=== PATIENT | male | born 1940 | race Caucasian/White ===

== ENCOUNTER 2019-01-10 19:29 | Inpatient (IN) | payer MEDICARE, OTHER ==
[2019-01-10] MEDS ORDERED: Sodium Chloride 0.9% 10 ML Syringe FLUSH PRN (19:38)
--- NOTE | 2019-01-10 20:16 | EDM.PDOC ---
ED HPI GENERAL MEDICAL PROBLEM - General Chief Complaint: Fever Stated Complaint: FEVER Time Seen by Provider: 01/10/19 20:15 Source of Information: Reports: Patient, Family History Limitations: Reports: No Limitations - History of Present Illness INITIAL COMMENTS - FREE TEXT/NARRATIVE: 78-year-old male from [facility] who presented because of weakness and fever. 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 - Related Data Allergies Allergy/AdvReac Type Severity Reaction Status Date / Time No Known Allergies Allergy Verified 01/10/19 20:00 Home Meds: Home Meds Aspirin [Halfprin] 81 mg PO DAILY 01/10/19 [History] Donepezil [Aricept] 10 mg PO DAILY 01/10/19 [History] Hydroxyurea 1,000 mg PO SUSA 01/10/19 [History] Hydroxyurea 500 mg PO MOTUWETHFR 01/10/19 [History] Lisinopril 10 mg PO DAILY 01/10/19 [History] Social & Family History - Tobacco Use Smoking Status *Q: Former Smoker Used Tobacco, but Quit: Yes Month/Year Tobacco Last Used: 35 years ago - Caffeine Use Caffeine Use: Reports: Coffee - Recreational Drug Use Recreational Drug Use: No ED ROS GENERAL - Review of Systems Review Of Systems: ROS reveals no pertinent complaints other than HPI. ED EXAM, SEPSIS - Physical Exam Exam: See Below Exam Limited By: No Limitations General Appearance: Alert, WD/WN, Lethargic Ears: Normal External Exam Nose: Normal Inspection Throat/Mouth: Normal Inspection Head: Atraumatic Neck: Normal Inspection Respiratory/Chest: No Respiratory Distress, Lungs Clear Cardiovascular: Normal Peripheral Pulses GI/Abdominal Exam: Normal Bowel Sounds Course - Vital Signs Last Recorded V/S: Last Vital Signs Temp 99.6 F 01/10/19 19:35 Pulse 80 01/10/19 19:35 Resp 20 01/10/19 19:35 BP 117/56 L 01/10/19 19:35 Pulse Ox 95 01/10/19 19:35 - Orders/Labs/Meds Orders: Active Orders 24 hr Category Date Time Status Chest 2V [CR] Stat Exams 01/10/19 19:38 Taken CULTURE BLOOD [BC] Urgent Lab 01/10/19 20:00 Received CULTURE BLOOD [BC] Urgent Lab 01/10/19 20:05 Received UA W/MICROSCOPIC [URIN] Stat Lab 01/10/19 19:38 Ordered Sodium Chloride 0.9% [Saline Flush] Med 01/10/19 19:38 Active 10 ml FLUSH ASDIRECTED PRN Blood Culture x2 Reflex Set [OM.PC] Urgent Oth 01/10/19 19:38 Ordered Peripheral IV Insertion Adult [OM.PC] Routine Oth 01/10/19 19:38 Ordered Medication Orders Sodium Chloride (Saline Flush) 10 ml FLUSH ASDIRECTED PRN PRN Reason: Keep Vein Open Last Admin: 01/10/19 19:40 Dose: 10 ml Labs: Laboratory Tests 01/10/19 01/10/19 01/10/19 Range/Units 20:00 20:00 20:00 WBC 9.7 (4.5-12.0) X10-3/uL RBC 5.24 (4.30-5.75) x10(6)uL Hgb 13.8 (13.5-17.8) g/dL Hct 42.8 (30.0-51.3) % MCV 81.6 (80-96) fL MCH 26.3 L (27.7-33.6) pg MCHC 32.2 (32.2-35.4) g/dL RDW 15.6 H (11.5-15.5) % Plt Count 270 (125-369) X10(3)uL MPV 8.2 (7.4-10.4) fL Neut % (Auto) 85.6 H (46-82) % Lymph % (Auto) 5.0 L (13-37) % [place] % (Auto) 5.3 (4-12) % Eos % (Auto) 1 (1.0-5.0) % Baso % (Auto) 4 H (0-2) % Neut # (Auto) 8.4 H (1.6-8.3) # Lymph # (Auto) 0.5 L (0.6-5.0) # [place] # (Auto) 0.5 (0.0-1.3) # Eos # (Auto) 0.0 (0.0-0.8) # Baso # (Auto) 0.3 H (0.0-0.2) # Sodium 131 L (135-145) mmol/L Potassium 3.6 (3.5-5.3) mmol/L Chloride 98 L (100-110) mmol/L Carbon Dioxide 24 (21-32) mmol/L BUN 17 (7-18) mg/dL Creatinine 0.6 L (0.70-1.30) mg/dL Est Cr Clr Drug Dosing 95.04 mL/min Estimated GFR (MDRD) > 60 (>60) BUN/Creatinine Ratio 28.3 H (9-20) Glucose 110 (80-116) mg/dL Calcium 8.4 L (8.6-10.2) mg/dL Total Bilirubin 1.4 H (0.1-1.3) mg/dL AST 13 (5-25) IU/L ALT 11 L (12-36) U/L Alkaline Phosphatase 70 (56-112) IU/L Troponin I 0.019 (<0.017-0.056) ng/mL Total Protein 5.9 L (6.0-8.0) g/dL Albumin 3.6 (3.2-4.6) g/dL Globulin 2.3 g/dL Albumin/Globulin Ratio 1.6 Meds: Medications Generic Name Dose Route Start Last Admin Trade Name Freq PRN Reason Stop Dose Admin Sodium Chloride 10 ml 01/10/19 19:38 01/10/19 19:40 Saline Flush FLUSH 10 ml ASDIRECTED PRN Administration Keep Vein Open Departure - Departure Time of Disposition: 20:47 Disposition: Refer to Observation Clinical Impression: Fever, Weakness - Discharge Information Referrals: PCP,None [Primary Care Provider] - Forms: ED Department Discharge - Problem List & Annotations (1) Fever SNOMED Code(s): 580962854 Code(s): R50.9 - FEVER, UNSPECIFIED Status: Acute Current Visit: Yes Qualifiers: Fever type: unspecified Qualified Code(s): R50.9 - Fever, unspecified (2) Weakness SNOMED Code(s): 31995885 Code(s): R53.1 - WEAKNESS Status: Acute Current Visit: Yes (3) Dementia SNOMED Code(s): 90464983 Code(s): F03.90 - UNSPECIFIED DEMENTIA WITHOUT BEHAVIORAL DISTURBANCE Status: Chronic Current Visit: Yes Qualifiers: Dementia type: Alzheimer's disease (4) Polycythemia SNOMED Code(s): 371405498 Code(s): D75.1 - SECONDARY POLYCYTHEMIA Status: Chronic Current Visit: Yes - Problem List Review Problem List Initiated/Reviewed/Updated: Yes - My Orders Last 24 Hours: My Active Orders 01/10/19 19:38 Chest 2V [CR] Stat UA W/MICROSCOPIC [URIN] Stat Sodium Chloride 0.9% [Saline Flush] 10 ml FLUSH ASDIRECTED PRN Blood Culture x2 Reflex Set [OM.PC] Urgent Peripheral IV Insertion Adult [OM.PC] Routine 01/10/19 20:00 CULTURE BLOOD [BC] Urgent 01/10/19 20:05 CULTURE BLOOD [BC] Urgent - Assessment/Plan Last 24 Hours: My Active Orders 01/10/19 19:38 Chest 2V [CR] Stat UA W/MICROSCOPIC [URIN] Stat Sodium Chloride 0.9% [Saline Flush] 10 ml FLUSH ASDIRECTED PRN Blood Culture x2 Reflex Set [OM.PC] Urgent Peripheral IV Insertion Adult [OM.PC] Routine 01/10/19 20:00 CULTURE BLOOD [BC] Urgent 01/10/19 20:05 CULTURE BLOOD [BC] Urgent Plan: The source of his fever/symptoms is uncertain. I will admit him give him fluids, obtain a UA,Flu A and re-evaluate.
[2019-01-10] MEDS ORDERED: Acetaminophen 325 MG Tab PO PRN (20:55)
[2019-01-10] MEDS: Sodium Chloride 0.9% 1,000 ML IV SCH (21:19)
[2019-01-11] MEDS: Sodium Chloride 0.9% 1,000 ML IV SCH ×2 (05:12→14:47)
--- NOTE | 2019-01-11 08:16 | PCM.PN ---
Addendum entered and electronically signed by Bina Seo MD 01/11/19 09:49: Palliative care status Original Note: <Bina Seo - Last Filed: 01/11/19 08:08> - General Info Date of Service: 01/11/19 Subjective Update: Ham Brown is a 78 years old male who admitted to the hospital due to fever , cough, weakness. Patient reports not feeling well for the last few days. He live in [facility] assisted living. Patient reports yesterday he had a temp of 102, chills, cough, loss of appetite, runny nose and congestion. He use FWW at home, he was too weak to walk yesterday. Patient quite smoking 20 years ago. PMHx of HTN on lisinopril, Dementia on Aricept, Hx of Polycythemia on Hydrea and Aspirin. Hx of prostate cancer s/p proctectomy in 2002. Patient reports today he is still feeling weak. He had low grade temp yesterday. Last BM was 2 days ago. Chest pain only when he cough. no prior history of heart disease. No new urinary symptoms, he dose have difficulty urination since his prostatectomy Patient denies headache. - Review of Systems General: Reports: Fever, Weakness, Fatigue, Chills, Appetite HEENT: Reports: Sinus Congestion Pulmonary: Reports: Pleuritic Chest Pain, Cough, Sputum Cardiovascular: Reports: No Symptoms Gastrointestinal: Reports: Constipation, Decreased Appetite Genitourinary: Reports: Other (Urinary: problems with starting and stopping urination.) Musculoskeletal: Reports: Back Pain Skin: Reports: No Symptoms Neurological: Reports: Weakness, Gait Disturbance Psychiatric: Reports: Other (Hx of Demntia ) - Patient Data Vitals - Most Recent: Last Vital Signs Temp 37.3 C 01/11/19 04:00 Pulse 64 01/11/19 04:00 Resp 18 01/11/19 04:00 BP 137/74 01/11/19 04:00 Pulse Ox 93 L 01/11/19 04:00 Weight - Most Recent: 146 lb I&O - Last 24 Hours: Intake & Output 01/10/19 01/11/19 01/11/19 22:59 06:59 14:59 Intake Total 1139 Output Total 400 Balance 739 Lab Results Last 24 Hours: Laboratory Results - last 24 hr 01/10/19 01/10/19 01/10/19 Range/Units 20:00 20:00 20:00 WBC 9.7 (4.5-12.0) X10-3/uL RBC 5.24 (4.30-5.75) x10(6)uL Hgb 13.8 (13.5-17.8) g/dL Hct 42.8 (30.0-51.3) % MCV 81.6 (80-96) fL MCH 26.3 L (27.7-33.6) pg MCHC 32.2 (32.2-35.4) g/dL RDW 15.6 H (11.5-15.5) % Plt Count 270 (125-369) X10(3)uL MPV 8.2 (7.4-10.4) fL Neut % (Auto) 85.6 H (46-82) % Lymph % (Auto) 5.0 L (13-37) % [place] % (Auto) 5.3 (4-12) % Eos % (Auto) 1 (1.0-5.0) % Baso % (Auto) 4 H (0-2) % Neut # (Auto) 8.4 H (1.6-8.3) # Lymph # (Auto) 0.5 L (0.6-5.0) # [place] # (Auto) 0.5 (0.0-1.3) # Eos # (Auto) 0.0 (0.0-0.8) # Baso # (Auto) 0.3 H (0.0-0.2) # Sodium 131 L (135-145) mmol/L Potassium 3.6 (3.5-5.3) mmol/L Chloride 98 L (100-110) mmol/L Carbon Dioxide 24 (21-32) mmol/L BUN 17 (7-18) mg/dL Creatinine 0.6 L (0.70-1.30) mg/dL Est Cr Clr Drug Dosing 95.04 mL/min Estimated GFR (MDRD) > 60 (>60) BUN/Creatinine Ratio 28.3 H (9-20) Glucose 110 (80-116) mg/dL Calcium 8.4 L (8.6-10.2) mg/dL Total Bilirubin 1.4 H (0.1-1.3) mg/dL AST 13 (5-25) IU/L ALT 11 L (12-36) U/L Alkaline Phosphatase 70 (56-112) IU/L Troponin I 0.019 (<0.017-0.056) ng/mL Total Protein 5.9 L (6.0-8.0) g/dL Albumin 3.6 (3.2-4.6) g/dL Globulin 2.3 g/dL Albumin/Globulin Ratio 1.6 Urine Color (YELLOW) Urine Appearance (CLEAR) Urine pH (5.0-6.5) Ur Specific [place] (1.010-1.025) Urine Protein (NEGATIVE) mg/dL Urine Glucose (UA) (NORMAL) mg/dL Urine Ketones (NEGATIVE) mg/dL Urine Occult Blood (NEGATIVE) Urine Nitrite (NEGATIVE) Urine Bilirubin (NEGATIVE) Urine Urobilinogen (NEGATIVE) mg/dL Ur Leukocyte Esterase (NEGATIVE) Urine RBC (0-5) Urine WBC (0-5) Ur Squamous Epith Cells (NS,R,O) Urine Bacteria (NS) 01/11/19 01/11/19 Range/Units 02:05 06:01 WBC (4.5-12.0) X10-3/uL RBC (4.30-5.75) x10(6)uL Hgb (13.5-17.8) g/dL Hct (30.0-51.3) % MCV (80-96) fL MCH (27.7-33.6) pg MCHC (32.2-35.4) g/dL RDW (11.5-15.5) % Plt Count (125-369) X10(3)uL MPV (7.4-10.4) fL Neut % (Auto) (46-82) % Lymph % (Auto) (13-37) % [place] % (Auto) (4-12) % Eos % (Auto) (1.0-5.0) % Baso % (Auto) (0-2) % Neut # (Auto) (1.6-8.3) # Lymph # (Auto) (0.6-5.0) # [place] # (Auto) (0.0-1.3) # Eos # (Auto) (0.0-0.8) # Baso # (Auto) (0.0-0.2) # Sodium 134 L (135-145) mmol/L Potassium 3.8 (3.5-5.3) mmol/L Chloride 101 (100-110) mmol/L Carbon Dioxide 28 (21-32) mmol/L BUN 13 (7-18) mg/dL Creatinine 0.6 L (0.70-1.30) mg/dL Est Cr Clr Drug Dosing 95.04 mL/min Estimated GFR (MDRD) > 60 (>60) BUN/Creatinine Ratio 21.7 H (9-20) Glucose 95 (80-116) mg/dL Calcium 8.1 L (8.6-10.2) mg/dL Total Bilirubin (0.1-1.3) mg/dL AST (5-25) IU/L ALT (12-36) U/L Alkaline Phosphatase (56-112) IU/L Troponin I (<0.017-0.056) ng/mL Total Protein (6.0-8.0) g/dL Albumin (3.2-4.6) g/dL Globulin g/dL Albumin/Globulin Ratio Urine Color Yellow (YELLOW) Urine Appearance Slightly cloudy (CLEAR) Urine pH 6.5 (5.0-6.5) Ur Specific [place] 1.015 (1.010-1.025) Urine Protein Negative (NEGATIVE) mg/dL Urine Glucose (UA) Normal (NORMAL) mg/dL Urine Ketones Negative (NEGATIVE) mg/dL Urine Occult Blood Negative (NEGATIVE) Urine Nitrite Negative (NEGATIVE) Urine Bilirubin Negative (NEGATIVE) Urine Urobilinogen 1 H (NEGATIVE) mg/dL Ur Leukocyte Esterase Negative (NEGATIVE) Urine RBC 0-5 (0-5) Urine WBC 0-5 (0-5) Ur Squamous Epith Cells Occasional (NS,R,O) Urine Bacteria Few H (NS) Ty Results Last 24 Hours: Microbiology 01/10/19 21:10 Influenza Type A Antigen Screen - Final Nasal, Unspecified NEGATIVE INFLUENZA A VIRUS AG Influenza Type B Antigen Screen - Final NEGATIVE INFLUENZA B VIRUS AG Med Orders - Current: Current Medications Acetaminophen (Tylenol) 650 mg PO Q4H PRN PRN Reason: Pain (Mild 1-3)/fever Sodium Chloride (Normal Saline) 1,000 mls @ 125 mls/hr IV ASDIRECTED [facility] Last Admin: 01/11/19 05:12 Dose: 125 mls/hr Levofloxacin/Dextrose (Levaquin In D5w 750 Mg/150 Ml) 150 mls @ 100 mls/hr IV Q24H FAIZAN Sodium Chloride (Saline Flush) 10 ml FLUSH ASDIRECTED PRN PRN Reason: Keep Vein Open Last Admin: 01/10/19 19:40 Dose: 10 ml - Exam General: Alert, Oriented HEENT: Pupils Equal Neck: Supple Lungs: Decreased Breath Sounds Cardiovascular: Regular Rate, Regular Rhythm GI/Abdominal Exam: Normal Bowel Sounds, Soft (Male) Exam: Deferred Back Exam: Normal Inspection Extremities: Pedal Edema Peripheral Pulses: 2+: Dorsalis Pedis (L), Dorsalis Pedis (R) Skin: Warm Psy/Mental Status: Alert, Normal Affect - Problem List & Annotations (1) Hypertension SNOMED Code(s): 06549828 Code(s): I10 - ESSENTIAL (PRIMARY) HYPERTENSION Status: Acute Current Visit: Yes (2) Community acquired pneumonia SNOMED Code(s): 391939285 Code(s): J18.9 - PNEUMONIA, UNSPECIFIED ORGANISM Status: Acute Current Visit: Yes (3) Fever SNOMED Code(s): 783748736 Code(s): R50.9 - FEVER, UNSPECIFIED Status: Acute Current Visit: Yes Qualifiers: Fever type: unspecified Qualified Code(s): R50.9 - Fever, unspecified (4) Weakness SNOMED Code(s): 71424269 Code(s): R53.1 - WEAKNESS Status: Acute Current Visit: Yes (5) Dementia SNOMED Code(s): 25248135 Code(s): F03.90 - UNSPECIFIED DEMENTIA WITHOUT BEHAVIORAL DISTURBANCE Status: Chronic Current Visit: Yes Qualifiers: Dementia type: Alzheimer's disease (6) Polycythemia SNOMED Code(s): 777587507 Code(s): D75.1 - SECONDARY POLYCYTHEMIA Status: Chronic Current Visit: Yes - Problem List Review Problem List Initiated/Reviewed/Updated: Yes - My Orders Last 24 Hours: My Active Orders 01/11/19 08:15 Levofloxacin/Dextrose 5%-Water [Levaquin in D5W 750 MG/150 ML] 150 ml IV Q24H - Plan Plan:: - Will start patient on Levaquin - Continue IV fluid - Restart home medication Lisinopril, Aricept, Aspirin, and Hydrea - PT/ OT - Pending blood culture - Repeat labs tomorrow <Boo Hummel - Last Filed: 01/11/19 15:19> - Patient Data Vitals - Most Recent: Last Vital Signs Temp 98.9 F 01/11/19 12:00 Pulse 67 01/11/19 12:00 Resp 18 01/11/19 12:00 BP 143/76 H 01/11/19 12:00 Pulse Ox 96 01/11/19 12:00 I&O - Last 24 Hours: Intake & Output 01/11/19 01/11/19 01/11/19 06:59 14:59 22:59 Intake Total 1139 900 Output Total 400 800 Balance 739 100 Lab Results Last 24 Hours: Laboratory Results - last 24 hr 01/10/19 01/10/19 01/10/19 Range/Units 20:00 20:00 20:00 WBC 9.7 (4.5-12.0) X10-3/uL RBC 5.24 (4.30-5.75) x10(6)uL Hgb 13.8 (13.5-17.8) g/dL Hct 42.8 (30.0-51.3) % MCV 81.6 (80-96) fL MCH 26.3 L (27.7-33.6) pg MCHC 32.2 (32.2-35.4) g/dL RDW 15.6 H (11.5-15.5) % Plt Count 270 (125-369) X10(3)uL MPV 8.2 (7.4-10.4) fL Neut % (Auto) 85.6 H (46-82) % Lymph % (Auto) 5.0 L (13-37) % [place] % (Auto) 5.3 (4-12) % Eos % (Auto) 1 (1.0-5.0) % Baso % (Auto) 4 H (0-2) % Neut # (Auto) 8.4 H (1.6-8.3) # Lymph # (Auto) 0.5 L (0.6-5.0) # [place] # (Auto) 0.5 (0.0-1.3) # Eos # (Auto) 0.0 (0.0-0.8) # Baso # (Auto) 0.3 H (0.0-0.2) # Sodium 131 L (135-145) mmol/L Potassium 3.6 (3.5-5.3) mmol/L Chloride 98 L (100-110) mmol/L Carbon Dioxide 24 (21-32) mmol/L BUN 17 (7-18) mg/dL Creatinine 0.6 L (0.70-1.30) mg/dL Est Cr Clr Drug Dosing 95.04 mL/min Estimated GFR (MDRD) > 60 (>60) BUN/Creatinine Ratio 28.3 H (9-20) Glucose 110 (80-116) mg/dL Calcium 8.4 L (8.6-10.2) mg/dL Total Bilirubin 1.4 H (0.1-1.3) mg/dL AST 13 (5-25) IU/L ALT 11 L (12-36) U/L Alkaline Phosphatase 70 (56-112) IU/L Troponin I 0.019 (<0.017-0.056) ng/mL Total Protein 5.9 L (6.0-8.0) g/dL Albumin 3.6 (3.2-4.6) g/dL Globulin 2.3 g/dL Albumin/Globulin Ratio 1.6 Urine Color (YELLOW) Urine Appearance (CLEAR) Urine pH (5.0-6.5) Ur Specific [place] (1.010-1.025) Urine Protein (NEGATIVE) mg/dL Urine Glucose (UA) (NORMAL) mg/dL Urine Ketones (NEGATIVE) mg/dL Urine Occult Blood (NEGATIVE) Urine Nitrite (NEGATIVE) Urine Bilirubin (NEGATIVE) Urine Urobilinogen (NEGATIVE) mg/dL Ur Leukocyte Esterase (NEGATIVE) Urine RBC (0-5) Urine WBC (0-5) Ur Squamous Epith Cells (NS,R,O) Urine Bacteria (NS) 01/11/19 01/11/19 Range/Units 02:05 06:01 WBC (4.5-12.0) X10-3/uL RBC (4.30-5.75) x10(6)uL Hgb (13.5-17.8) g/dL Hct (30.0-51.3) % MCV (80-96) fL MCH (27.7-33.6) pg MCHC (32.2-35.4) g/dL RDW (11.5-15.5) % Plt Count (125-369) X10(3)uL MPV (7.4-10.4) fL Neut % (Auto) (46-82) % Lymph % (Auto) (13-37) % [place] % (Auto) (4-12) % Eos % (Auto) (1.0-5.0) % Baso % (Auto) (0-2) % Neut # (Auto) (1.6-8.3) # Lymph # (Auto) (0.6-5.0) # [place] # (Auto) (0.0-1.3) # Eos # (Auto) (0.0-0.8) # Baso # (Auto) (0.0-0.2) # Sodium 134 L (135-145) mmol/L Potassium 3.8 (3.5-5.3) mmol/L Chloride 101 (100-110) mmol/L Carbon Dioxide 28 (21-32) mmol/L BUN 13 (7-18) mg/dL Creatinine 0.6 L (0.70-1.30) mg/dL Est Cr Clr Drug Dosing 95.04 mL/min Estimated GFR (MDRD) > 60 (>60) BUN/Creatinine Ratio 21.7 H (9-20) Glucose 95 (80-116) mg/dL Calcium 8.1 L (8.6-10.2) mg/dL Total Bilirubin (0.1-1.3) mg/dL AST (5-25) IU/L ALT (12-36) U/L Alkaline Phosphatase (56-112) IU/L Troponin I (<0.017-0.056) ng/mL Total Protein (6.0-8.0) g/dL Albumin (3.2-4.6) g/dL Globulin g/dL Albumin/Globulin Ratio Urine Color Yellow (YELLOW) Urine Appearance Slightly cloudy (CLEAR) Urine pH 6.5 (5.0-6.5) Ur Specific [place] 1.015 (1.010-1.025) Urine Protein Negative (NEGATIVE) mg/dL Urine Glucose (UA) Normal (NORMAL) mg/dL Urine Ketones Negative (NEGATIVE) mg/dL Urine Occult Blood Negative (NEGATIVE) Urine Nitrite Negative (NEGATIVE) Urine Bilirubin Negative (NEGATIVE) Urine Urobilinogen 1 H (NEGATIVE) mg/dL Ur Leukocyte Esterase Negative (NEGATIVE) Urine RBC 0-5 (0-5) Urine WBC 0-5 (0-5) Ur Squamous Epith Cells Occasional (NS,R,O) Urine Bacteria Few H (NS) Ty Results Last 24 Hours: Microbiology 01/10/19 21:10 Influenza Type A Antigen Screen - Final Nasal, Unspecified NEGATIVE INFLUENZA A VIRUS AG Influenza Type B Antigen Screen - Final NEGATIVE INFLUENZA B VIRUS AG Med Orders - Current: Current Medications Acetaminophen (Tylenol) 650 mg PO Q4H PRN PRN Reason: Pain (Mild 1-3)/fever Aspirin (Halfprin) 81 mg PO DAILY [facility] Last Admin: 01/11/19 09:52 Dose: 81 mg Donepezil HCl (Aricept) 10 mg PO DAILY [facility] Last Admin: 01/11/19 09:52 Dose: 10 mg Hydroxyurea (Hydrea) 500 mg PO MOTUWETHFR [facility] Last Admin: 01/11/19 09:51 Dose: 500 mg Hydroxyurea (Hydrea) 1,000 mg PO SuSa@0900 [facility] Sodium Chloride (Normal Saline) 1,000 mls @ 125 mls/hr IV ASDIRECTED [facility] Last Admin: 01/11/19 14:47 Dose: 125 mls/hr Levofloxacin/Dextrose (Levaquin In D5w 750 Mg/150 Ml) 150 mls @ 100 mls/hr IV Q24H [facility] Last Admin: 01/11/19 08:31 Dose: 100 mls/hr Lisinopril (Prinivil) 10 mg PO DAILY@1800 [facility] Sodium Chloride (Saline Flush) 10 ml FLUSH ASDIRECTED PRN PRN Reason: Keep Vein Open Last Admin: 01/10/19 19:40 Dose: 10 ml - My Orders Last 24 Hours: My Active Orders 01/11/19 09:47 Patient Status [ADT] Routine - Plan Plan:: I attest that seeing this patient examined this patient.
[2019-01-11] MEDS: Levofloxacin/Dextrose 5%-Water 150 ML IV SCH (08:31)
[2019-01-11] MEDS: Hydroxyurea 500 MG Cap PO SCH (09:51)
[2019-01-11] MEDS: Donepezil 10 MG Tab PO SCH (09:52)
[2019-01-11] MEDS: Aspirin 81 MG Tab.EC PO SCH (09:52)
--- NOTE | 2019-01-11 10:47 | CR ---
INDICATION: Cough. CHEST TWO VIEWS: AP and 2 lateral views of the chest were obtained 01/10/19-- no comparisons. The heart is enlarged with LVE. The aorta is tortuous with calcification minimally in the arch and descending portion. There appears to be infiltrate in the left lower lobe with suggestion of some minimal blunting of the posterior sulcus, findings being compatible with pneumonia and pleuritis--correlate clinically. A definite consolidating pneumonia was not identified in the right lung. However, posteriorly there appears to be a curvilinear density, which may represent a fibrotic strand or possibly subsegmental atelectatic change. Also noted is hyperaeration with slightly flattened diaphragm leafs and prominent AP diameter suggesting COPD. Bony structures appear to be fairly intact. No evidence of CHF is seen. IMPRESSION: 1. Probable left lower lobe pneumonia and pleuritis, mild patchy pneumonia suggested. 2. Probable COPD--correlate clinically. 3. ASHD with cardiomegaly. MTDD
[2019-01-11] MEDS: Lisinopril 10 MG Tab PO SCH (18:16)
[2019-01-12] MEDS: Sodium Chloride 0.9% 1,000 ML IV SCH (01:43)
[2019-01-12] MEDS: Donepezil 10 MG Tab PO SCH (08:38)
[2019-01-12] MEDS: Aspirin 81 MG Tab.EC PO SCH (08:39)
[2019-01-12] MEDS: Hydroxyurea 500 MG Cap PO SCH (08:39)
--- NOTE | 2019-01-12 09:25 | PCM.PN ---
<Bina Seo - Last Filed: 01/12/19 09:20> - General Info Date of Service: 01/12/19 Admission Dx/Problem (Free Text): Patient is doing well today. He is confused and disoriented, but he dose has baseline dementia. He denies chest pain. he has cough with sputum. vital sign stable. he is tolerating diet well. had BM yesterday. we lost his IV access this morning. - Review of Systems General: Reports: Fatigue HEENT: Reports: No Symptoms Pulmonary: Reports: Cough, Sputum Cardiovascular: Reports: No Symptoms Gastrointestinal: Reports: No Symptoms Genitourinary: Reports: Incontinence Musculoskeletal: Reports: No Symptoms Skin: Reports: No Symptoms Neurological: Reports: Confusion Psychiatric: Reports: Confusion - Patient Data Vitals - Most Recent: Last Vital Signs Temp 36.7 C 01/12/19 04:10 Pulse 70 01/12/19 04:10 Resp 18 01/12/19 04:10 BP 125/63 01/12/19 06:23 Pulse Ox 95 01/12/19 04:10 Weight - Most Recent: 146 lb I&O - Last 24 Hours: Intake & Output 01/11/19 01/12/19 01/12/19 22:59 06:59 14:59 Intake Total 1494 511 Output Total 550 2500 Balance 944 -1988 Ty Results Last 24 Hours: Microbiology 01/11/19 02:05 Urine Culture - Preliminary Urine, Clean Catch 01/10/19 20:05 Aerobic Blood Culture - Preliminary Blood - Venous NO GROWTH AFTER 1 DAY Anaerobic Blood Culture - Preliminary NO GROWTH AFTER 1 DAY 01/10/19 20:00 Aerobic Blood Culture - Preliminary Blood - Venous - Lab Draw NO GROWTH AFTER 1 DAY Anaerobic Blood Culture - Preliminary NO GROWTH AFTER 1 DAY Med Orders - Current: Current Medications Acetaminophen (Tylenol) 650 mg PO Q4H PRN PRN Reason: Pain (Mild 1-3)/fever Aspirin (Halfprin) 81 mg PO DAILY [facility] Last Admin: 01/12/19 08:39 Dose: 81 mg Donepezil HCl (Aricept) 10 mg PO DAILY [facility] Last Admin: 01/12/19 08:38 Dose: 10 mg Hydroxyurea (Hydrea) 500 mg PO MOTUWETHFR [facility] Last Admin: 01/12/19 08:39 Dose: 500 mg Hydroxyurea (Hydrea) 1,000 mg PO SuSa@0900 [facility] Levofloxacin (Levaquin) 750 mg PO Q24H [facility] Lisinopril (Prinivil) 10 mg PO DAILY@1800 [facility] Last Admin: 01/11/19 18:16 Dose: 10 mg Discontinued Medications Sodium Chloride (Normal Saline) 1,000 mls @ 70 mls/hr IV ASDIRECTED [facility] Last Admin: 01/12/19 01:43 Dose: 125 mls/hr Levofloxacin/Dextrose (Levaquin In D5w 750 Mg/150 Ml) 150 mls @ 100 mls/hr IV Q24H [facility] Last Admin: 01/11/19 08:31 Dose: 100 mls/hr Sodium Chloride (Saline Flush) 10 ml FLUSH ASDIRECTED PRN PRN Reason: Keep Vein Open Last Admin: 01/10/19 19:40 Dose: 10 ml - Exam General: Alert, Cooperative HEENT: Pupils Equal Neck: Supple Lungs: Decreased Breath Sounds, Crackles Cardiovascular: Regular Rate, Regular Rhythm GI/Abdominal Exam: Normal Bowel Sounds, Soft, Non-Tender Extremities: Normal Inspection, Non-Tender, No Pedal Edema Skin: Warm (disoriented ) Psy/Mental Status: Alert, Normal Affect, Normal Mood - Problem List & Annotations (1) Hypertension SNOMED Code(s): 12729693 Code(s): I10 - ESSENTIAL (PRIMARY) HYPERTENSION Status: Acute Current Visit: Yes (2) Community acquired pneumonia SNOMED Code(s): 795977226 Code(s): J18.9 - PNEUMONIA, UNSPECIFIED ORGANISM Status: Acute Current Visit: Yes (3) Fever SNOMED Code(s): 742233258 Code(s): R50.9 - FEVER, UNSPECIFIED Status: Acute Current Visit: Yes Qualifiers: Fever type: unspecified Qualified Code(s): R50.9 - Fever, unspecified (4) Weakness SNOMED Code(s): 33434694 Code(s): R53.1 - WEAKNESS Status: Acute Current Visit: Yes (5) Dementia SNOMED Code(s): 40048938 Code(s): F03.90 - UNSPECIFIED DEMENTIA WITHOUT BEHAVIORAL DISTURBANCE Status: Chronic Current Visit: Yes Qualifiers: Dementia type: Alzheimer's disease (6) Polycythemia SNOMED Code(s): 810038919 Code(s): D75.1 - SECONDARY POLYCYTHEMIA Status: Chronic Current Visit: Yes - Problem List Review Problem List Initiated/Reviewed/Updated: Yes - My Orders Last 24 Hours: My Active Orders 01/11/19 08:30 Hydroxyurea [Hydrea] 500 mg PO MOTUWETHFR 01/11/19 09:00 Aspirin [Halfprin] 81 mg PO DAILY Donepezil [Aricept] 10 mg PO DAILY 01/11/19 18:00 Lisinopril [Prinivil] 10 mg PO DAILY@1800 01/14/19 09:00 Hydroxyurea [Hydrea] 1,000 mg PO SuSa@0900 - Plan Plan:: Ham Brown is a 78 year old male with Pneumonia. - Switch IV Levaquin to PO. - Continue PT/OT - Continue to monitor vital sign <Boo Hummel - Last Filed: 01/12/19 16:10> - Patient Data Vitals - Most Recent: Last Vital Signs Temp 98.3 F 01/12/19 08:00 Pulse 80 01/12/19 08:00 Resp 14 01/12/19 08:00 BP 119/60 01/12/19 08:00 Pulse Ox 96 01/12/19 08:00 I&O - Last 24 Hours: Intake & Output 01/12/19 01/12/19 01/12/19 06:59 14:59 22:59 Intake Total 511 Output Total 2500 1250 Balance -1989 -1250 Ty Results Last 24 Hours: Microbiology 01/11/19 02:05 Urine Culture - Preliminary Urine, Clean Catch 01/10/19 20:05 Aerobic Blood Culture - Preliminary Blood - Venous NO GROWTH AFTER 1 DAY Anaerobic Blood Culture - Preliminary NO GROWTH AFTER 1 DAY 01/10/19 20:00 Aerobic Blood Culture - Preliminary Blood - Venous - Lab Draw NO GROWTH AFTER 1 DAY Anaerobic Blood Culture - Preliminary NO GROWTH AFTER 1 DAY Med Orders - Current: Current Medications Acetaminophen (Tylenol) 650 mg PO Q4H PRN PRN Reason: Pain (Mild 1-3)/fever Aspirin (Halfprin) 81 mg PO DAILY [facility] Last Admin: 01/12/19 08:39 Dose: 81 mg Donepezil HCl (Aricept) 10 mg PO DAILY [facility] Last Admin: 01/12/19 08:38 Dose: 10 mg Hydroxyurea (Hydrea) 500 mg PO MOTUWETHFR [facility] Last Admin: 01/12/19 08:39 Dose: 500 mg Hydroxyurea (Hydrea) 1,000 mg PO SuSa@0900 [facility] Levofloxacin (Levaquin) 750 mg PO Q24H [facility] Last Admin: 01/12/19 09:40 Dose: 750 mg Lisinopril (Prinivil) 10 mg PO DAILY@1800 [facility] Last Admin: 01/11/19 18:16 Dose: 10 mg Discontinued Medications Sodium Chloride (Normal Saline) 1,000 mls @ 70 mls/hr IV ASDIRECTED [facility] Last Admin: 01/12/19 01:43 Dose: 125 mls/hr Levofloxacin/Dextrose (Levaquin In D5w 750 Mg/150 Ml) 150 mls @ 100 mls/hr IV Q24H [facility] Last Admin: 01/12/19 10:22 Dose: Not Given Sodium Chloride (Saline Flush) 10 ml FLUSH ASDIRECTED PRN PRN Reason: Keep Vein Open Last Admin: 01/10/19 19:40 Dose: 10 ml - My Orders Last 24 Hours: My Active Orders 01/12/19 08:36 Peripheral IV Discontinue [OM.PC] Routine 01/12/19 09:00 levoFLOXacin [Levaquin] 750 mg PO Q24H - Plan Plan:: I attest that I have seen and examined this patient with the resident today.
[2019-01-12] MEDS: Levofloxacin 750 MG Tab PO SCH (09:40)
[2019-01-12] MEDS: Levofloxacin/Dextrose 5%-Water 150 ML IV SCH (10:22)
--- NOTE | 2019-01-12 17:23 | PCM.HP ---
<Bina Seo - Last Filed: 01/12/19 17:17> H&P History of Present Illness - General Date of Service: 01/11/19 Admit Problem/Dx: Ham Brown is a 78 years old male who admitted to the hospital due to fever , cough, weakness. Patient reports not feeling well for the last few days. He live in [place] assisted living. Patient reports yesterday he had a temp of 102, chills, cough, loss of appetite, runny nose and congestion. He use FWW at home, he was too weak to walk yesterday. Patient quite smoking 20 years ago. PMHx of HTN on lisinopril, Dementia on Aricept, Hx of Polycythemia on Hydrea and Aspirin. Hx of prostate cancer s/p proctectomy in 2002. Patient reports today he is still feeling weak. He had low grade temp yesterday. Last BM was 2 days ago. Chest pain only when he cough. no prior history of heart disease. No new urinary symptoms, he dose have difficulty urination since his prostatectomy Patient denies headache. - Related Data Allergies/Adverse Reactions: Allergies Allergy/AdvReac Type Severity Reaction Status Date / Time No Known Allergies Allergy Verified 01/10/19 20:00 Home Medications: Home Meds Aspirin [Halfprin] 81 mg PO DAILY 01/10/19 [History] Donepezil [Aricept] 10 mg PO DAILY 01/10/19 [History] Hydroxyurea 1,000 mg PO SUSA 01/10/19 [History] Hydroxyurea 500 mg PO MOTUWETHFR 01/10/19 [History] Lisinopril 10 mg PO DAILY@1800 01/10/19 [History] Past Medical History Cardiovascular History: Reports: Hypertension Musculoskeletal History: Reports: Back Pain, Chronic Neurological History: Reports: Parkinson's, Other (See Below) Other Neuro History: lewey body dementia Psychiatric History: Reports: None Other Psychiatric History: Lewey body dementia Hematologic History: Reports: Polycythemia Oncologic (Cancer) History: Reports: Prostate Other Oncologic History: polycthemia - Infectious Disease History Infectious Disease History: Reports: Chicken Pox - Past Surgical History Neurological Surgical History: Reports: None Social & Family History - Family History Family Medical History: Unobtainable - Tobacco Use Smoking Status *Q: Former Smoker Years of Tobacco use: 10 Packs/Tins Daily: 1 Used Tobacco, but Quit: Yes Month/Year Tobacco Last Used: unknown Second Hand Smoke Exposure: No - Caffeine Use Caffeine Use: Reports: Coffee Other Caffeine Use: 3-4 a day - Recreational Drug Use Recreational Drug Use: No H&P Review of Systems - Review of Systems: Review Of Systems: See Below General: Reports: Fever, Weakness, Fatigue, Decreased Appetite HEENT: Reports: No Symptoms Pulmonary: Reports: Shortness of Breath, Cough, Sputum Cardiovascular: Reports: No Symptoms Gastrointestinal: Reports: Decreased Appetite Genitourinary: Reports: Incontinence Musculoskeletal: Reports: No Symptoms Skin: Reports: No Symptoms Psychiatric: Reports: Confusion Neurological: Reports: Confusion, Difficulty Walking Exam - Exam Exam: See Below - Vital Signs Vital Signs: Last Vital Signs Temp 37.1 C 01/12/19 16:00 Pulse 67 01/12/19 16:00 Resp 14 01/12/19 16:00 BP 149/77 H 01/12/19 16:00 Pulse Ox 96 01/12/19 16:00 Weight: 146 lb - Exam General: Alert, Cooperative HEENT: PERRLA Neck: Supple Lungs: Decreased Breath Sounds Cardiovascular: Regular Rate, Regular Rhythm GI/Abdominal Exam: Normal Bowel Sounds, Soft, Non-Tender, No Organomegaly, No Distention, No Abnormal Bruit, No Mass, Pelvis Stable (Male) Exam: Deferred Rectal (Males) Exam: Deferred Back Exam: Decreased Range of Motion Extremities: Normal Inspection Skin: Warm Neurological: Abnormal Gait Neuro Extensive - Mental Status: Alert, Disorientation to Person, Disorientation to Place, Disorientation to Time Neuro Extensive - Motor, Sensory, Reflexes: Abnormal Motor Psychiatric: Alert - Patient Data Result Diagrams: 01/10/19 20:00 01/11/19 06:01 Ty Results Last 24 hrs: Microbiology 01/11/19 02:05 Urine Culture - Preliminary Urine, Clean Catch 01/10/19 20:05 Aerobic Blood Culture - Preliminary Blood - Venous NO GROWTH AFTER 1 DAY Anaerobic Blood Culture - Preliminary NO GROWTH AFTER 1 DAY 01/10/19 20:00 Aerobic Blood Culture - Preliminary Blood - Venous - Lab Draw NO GROWTH AFTER 1 DAY Anaerobic Blood Culture - Preliminary NO GROWTH AFTER 1 DAY - Problem List (1) Hypertension SNOMED Code(s): 70791679 ICD Code: I10 - ESSENTIAL (PRIMARY) HYPERTENSION Status: Acute Current Visit: Yes (2) Community acquired pneumonia SNOMED Code(s): 620213140 ICD Code: J18.9 - PNEUMONIA, UNSPECIFIED ORGANISM Status: Acute Current Visit: Yes (3) Fever SNOMED Code(s): 599696407 ICD Code: R50.9 - FEVER, UNSPECIFIED Status: Acute Current Visit: Yes Qualifiers: Fever type: unspecified Qualified Code(s): R50.9 - Fever, unspecified (4) Weakness SNOMED Code(s): 13288288 ICD Code: R53.1 - WEAKNESS Status: Acute Current Visit: Yes (5) Dementia SNOMED Code(s): 00180603 ICD Code: F03.90 - UNSPECIFIED DEMENTIA WITHOUT BEHAVIORAL DISTURBANCE Status: Chronic Current Visit: Yes Qualifiers: Dementia type: Alzheimer's disease (6) Polycythemia SNOMED Code(s): 820288600 ICD Code: D75.1 - SECONDARY POLYCYTHEMIA Status: Chronic Current Visit: Yes (7) Palliative care status SNOMED Code(s): 540633373 ICD Code: Z51.5 - ENCOUNTER FOR PALLIATIVE CARE Status: Acute Current Visit: Yes Problem List Initiated/Reviewed/Updated: Yes Orders Last 24hrs: Active Orders 24 hr Category Date Time Status Hydroxyurea [Hydrea] Med 01/14/19 09:00 Active 1,000 mg PO SuSa@0900 Lisinopril [Prinivil] Med 01/11/19 18:00 Active 10 mg PO DAILY@1800 levoFLOXacin [Levaquin] Med 01/12/19 09:00 Active 750 mg PO Q24H Peripheral IV Discontinue [OM.PC] Routine Oth 01/12/19 08:36 Ordered Medication Orders Acetaminophen (Tylenol) 650 mg PO Q4H PRN PRN Reason: Pain (Mild 1-3)/fever Aspirin (Halfprin) 81 mg PO DAILY [facility] Last Admin: 01/12/19 08:39 Dose: 81 mg Admin: 01/11/19 09:52 Dose: 81 mg Donepezil HCl (Aricept) 10 mg PO DAILY [facility] Last Admin: 01/12/19 08:38 Dose: 10 mg Admin: 01/11/19 09:52 Dose: 10 mg Hydroxyurea (Hydrea) 500 mg PO MOTUWETHFR [facility] Last Admin: 01/12/19 08:39 Dose: 500 mg Admin: 01/11/19 09:51 Dose: 500 mg Hydroxyurea (Hydrea) 1,000 mg PO SuSa@0900 [facility] Levofloxacin (Levaquin) 750 mg PO Q24H [facility] Last Admin: 01/12/19 09:40 Dose: 750 mg Lisinopril (Prinivil) 10 mg PO DAILY@1800 [facility] Last Admin: 01/11/19 18:16 Dose: 10 mg Assessment/Plan Comment:: 78 years old male admitted for pneumonia and weakness. Reviewed labs and images - start Levaquin IV - Monitor vital sign - Pending blood culture - PT/OT - IV fluid <Boo Hummel - Last Filed: 01/12/19 17:25> H&P History of Present Illness - General Admit Problem/Dx: Admission Diagnosis/Problem Admission Diagnosis/Problem Pneumonia Exam - Vital Signs Vital Signs: Last Vital Signs Temp 98.7 F 01/12/19 16:00 Pulse 67 01/12/19 16:00 Resp 14 01/12/19 16:00 BP 149/77 H 01/12/19 16:00 Pulse Ox 96 01/12/19 16:00 - Patient Data Result Diagrams: 01/10/19 20:00 01/11/19 06:01 Ty Results Last 24 hrs: Microbiology 01/11/19 02:05 Urine Culture - Preliminary Urine, Clean Catch 01/10/19 20:05 Aerobic Blood Culture - Preliminary Blood - Venous NO GROWTH AFTER 1 DAY Anaerobic Blood Culture - Preliminary NO GROWTH AFTER 1 DAY 01/10/19 20:00 Aerobic Blood Culture - Preliminary Blood - Venous - Lab Draw NO GROWTH AFTER 1 DAY Anaerobic Blood Culture - Preliminary NO GROWTH AFTER 1 DAY Orders Last 24hrs: Active Orders 24 hr Category Date Time Status Hydroxyurea [Hydrea] Med 01/14/19 09:00 Active 1,000 mg PO SuSa@0900 Lisinopril [Prinivil] Med 01/11/19 18:00 Active 10 mg PO DAILY@1800 levoFLOXacin [Levaquin] Med 01/12/19 09:00 Active 750 mg PO Q24H Peripheral IV Discontinue [OM.PC] Routine Oth 01/12/19 08:36 Ordered Medication Orders Acetaminophen (Tylenol) 650 mg PO Q4H PRN PRN Reason: Pain (Mild 1-3)/fever Aspirin (Halfprin) 81 mg PO DAILY [facility] Last Admin: 01/12/19 08:39 Dose: 81 mg Admin: 01/11/19 09:52 Dose: 81 mg Donepezil HCl (Aricept) 10 mg PO DAILY [facility] Last Admin: 01/12/19 08:38 Dose: 10 mg Admin: 01/11/19 09:52 Dose: 10 mg Hydroxyurea (Hydrea) 500 mg PO MOTUWETHFR [facility] Last Admin: 01/12/19 08:39 Dose: 500 mg Admin: 01/11/19 09:51 Dose: 500 mg Hydroxyurea (Hydrea) 1,000 mg PO SuSa@0900 [facility] Levofloxacin (Levaquin) 750 mg PO Q24H [facility] Last Admin: 01/12/19 09:40 Dose: 750 mg Lisinopril (Prinivil) 10 mg PO DAILY@1800 [facility] Last Admin: 01/11/19 18:16 Dose: 10 mg Assessment/Plan Comment:: I attest that I have seen and examined this patient with the Resident.
[2019-01-12] MEDS: Lisinopril 10 MG Tab PO SCH (18:52)
[2019-01-13] MEDS: Donepezil 10 MG Tab PO SCH (09:29)
[2019-01-13] MEDS: Hydroxyurea 500 MG Cap PO SCH (09:29)
[2019-01-13] MEDS: Levofloxacin 750 MG Tab PO SCH (09:29)
[2019-01-13] MEDS: Aspirin 81 MG Tab.EC PO SCH (09:29)
--- NOTE | 2019-01-14 04:31 | DISCH ---
DISCHARGE DATE: 01/13/2019 PRIMARY FINAL DIAGNOSIS: Left lower lobe pneumonia. OTHER DIAGNOSES: 1. Chronic dementia. 2. Chronic essential hypertension. 3. Polycythemia. OPERATIONS: None. COMPLICATIONS: None. SUMMARY: Ham is a 78-year-old man, who was admitted through the ER because of fever, weakness and a fall. The patient was found to have left lower lobe pneumonia. He was treated with IV and then switched to oral Levaquin. His fever rapidly defervesced. His strength improved and by 01/13/2019, he was up walking with good strength and balance. The patient is improved enough for discharge back to the [facility]. DISCHARGE MEDICATIONS: He was sent home on medications as follows: 1. Lisinopril 10 mg daily. 2. Levaquin 750 mg daily for four more days. 3. Hydrea 500 mg on Wednesday, Wednesday, Wednesday, , and Wednesday, and 1000 mg on Wednesday and Wednesday. 4. Aricept 10 mg daily. 5. Aspirin 81 mg daily. He will have home health assessment for any further need for treatment or therapies and is recommended to have a followup visit in 2 weeks as an outpatient. This patient will continue to receive palliative care measures for his underlying dementia and general infirmities of aging. /[id number] RAHEEM/LAY
[2019-01-14] MEDS ORDERED: Hydroxyurea 500 MG Cap PO SCH (09:00)
== END 2019-01-13 13:18 | disposition home health service (06) | DRG 195 ==
LOC: FB.ED 19:29 → FB.MS 21:05 → OBSVTOIN 01-11 09:47
PROVIDERS: ADMIT Family Medicine; ATTEND Family Medicine
DX: J18.9 Pneumonia, unspecified organism (principal); R50.9 Fever, unspecified; Z51.5 Encounter for palliative care; I10 Essential (primary) hypertension; D75.1 Secondary polycythemia; G31.83 Neurocognitive disorder with Lewy bodies; F02.80 Dementia in other diseases classified elsewhere, unspecified severity, without behavioral disturbance, psychotic disturbance, mood disturbance, and anxiety; Z87.891 Personal history of nicotine dependence; R53.1 Weakness; M54.9 Dorsalgia, unspecified; G89.29 Other chronic pain; Z85.46 Personal history of malignant neoplasm of prostate; Z90.79 Acquired absence of other genital organ(s); R39.198 Other difficulties with micturition; Z79.82 Long term (current) use of aspirin; W19.XXXA Unspecified fall, initial encounter; Y92.099 Unspecified place in other non-institutional residence as the place of occurrence of the external cause
CPT/HCPCS: 36415 ×2; 71046; 80048; 80053; 81001; 84484; 85025; 87040 ×2; 87086; 87804 ×2; 96361 ×2; 96365; 99285; G0378 ×2; J1956; J7030 ×2; 96360; 97110-GP; 97116-GP; 97161-GP; 97165-GO; 97530-GO; 99284; A9270-GY

== ENCOUNTER 2019-04-07 05:41 | Emergency (ER) | payer MEDICARE, OTHER ==
--- NOTE | 2019-04-07 06:34 | EDM.PDOC ---
<Juan Jose Antonio M - Last Filed: 04/07/19 06:50> ED HPI GENERAL MEDICAL PROBLEM - General Chief Complaint: Lower Extremity Injury/Pain Stated Complaint: FALL Time Seen by Provider: 04/07/19 06:32 Source of Information: Reports: [facility] Records History Limitations: Reports: Altered Mental Status - History of Present Illness INITIAL COMMENTS - FREE TEXT/NARRATIVE: Hma fell at the assisted living this morning.Unwitnessed. Found on the floor.Pain to the right hip area,inner thigh.Denies Headache. No LOC reported. Has dementia. His PMH includes Parkinsonism,Polycythemia Vera and HTN - Related Data Allergies Allergy/AdvReac Type Severity Reaction Status Date / Time leuprolide [From Lupron] Allergy Cannot Verified 04/07/19 06:13 Remember Home Meds: Home Meds Acetaminophen [Tylenol] 650 mg PO Q4H PRN tablet 01/13/19 [Rx] Aspirin [Halfprin] 81 mg PO DAILY #100 tab.ec 01/13/19 [Rx] Hydroxyurea 1,000 mg PO SUSA #60 capsule 01/13/19 [Rx] Hydroxyurea 500 mg PO MOTUWETHFR #40 capsule 01/13/19 [Rx] Lisinopril 10 mg PO DAILY@1800 #30 tablet 01/13/19 [Rx] Past Medical History Cardiovascular History: Reports: Hypertension Musculoskeletal History: Reports: Back Pain, Chronic Neurological History: Reports: Parkinson's, Other (See Below) Other Neuro History: lewey body dementia Psychiatric History: Reports: None Other Psychiatric History: Lewey body dementia Hematologic History: Reports: Polycythemia Oncologic (Cancer) History: Reports: Prostate Other Oncologic History: polycthemia - Infectious Disease History Infectious Disease History: Reports: Chicken Pox - Past Surgical History Neurological Surgical History: Reports: None Social & Family History - Family History Family Medical History: Unobtainable - Tobacco Use Smoking Status *Q: Unknown Ever Smoked - Caffeine Use Caffeine Use: Reports: Coffee Other Caffeine Use: 3-4 a day - Recreational Drug Use Recreational Drug Use: No Review of Systems - Review of Systems Review Of Systems: ROS reveals no pertinent complaints other than HPI. ED EXAM, GENERAL - Physical Exam Exam: See Below Exam Limited By: Altered Mental Status General Appearance: Alert, WD/WN Head: Atraumatic, Normocephalic Neck: Normal Inspection Respiratory/Chest: No Respiratory Distress Extremities: Pedal Edema, Limited Range of Motion, Other (Tender right hip. ). No: Normal Range of Motion Psychiatric: Normal Affect, Normal Mood Skin Exam: Warm Course - Vital Signs Last Recorded V/S: Last Vital Signs Temp 36.6 C 04/07/19 05:45 Pulse 87 04/07/19 12:15 Resp 18 04/07/19 12:15 BP 187/85 H 04/07/19 12:15 Pulse Ox 95 04/07/19 12:15 - Orders/Labs/Meds Orders: Active Orders 24 hr Category Date Time Status URINALYSIS W/MICROSCOPIC [UA W/MICROSCOPIC] [URIN] Stat Lab 04/07/19 12:30 Ordered Sodium Chloride 0.9% [Normal Saline] 1,000 ml Med 04/07/19 08:30 Active IV ASDIRECTED Sodium Chloride 0.9% [Saline Flush] Med 04/07/19 07:35 Active 10 ml FLUSH ASDIRECTED PRN fentaNYL [Sublimaze] Med 04/07/19 08:16 Active 10 mcg IVPUSH Q30M PRN EKG 12 Lead [EK] Stat Ther 04/07/19 06:44 Ordered Medication Orders Fentanyl (Sublimaze) 10 mcg IVPUSH Q30M PRN PRN Reason: Pain Last Admin: 04/07/19 09:20 Dose: 10 mcg Admin: 04/07/19 08:49 Dose: 10 mcg Sodium Chloride (Normal Saline) 1,000 mls @ 150 mls/hr IV ASDIRECTED FAIZAN Last Admin: 04/07/19 08:46 Dose: 150 mls/hr Sodium Chloride (Saline Flush) 10 ml FLUSH ASDIRECTED PRN PRN Reason: Keep Vein Open Last Admin: 04/07/19 07:35 Dose: 10 ml Labs: Laboratory Tests 04/07/19 04/07/19 Range/Units 07:10 07:10 WBC 7.5 (4.5-12.0) X10-3/uL RBC 5.18 (4.30-5.75) x10(6)uL Hgb 14.1 (13.5-17.8) g/dL Hct 43.8 (30.0-51.3) % MCV 84.6 (80-96) fL MCH 27.2 L (27.7-33.6) pg MCHC 32.2 (32.2-35.4) g/dL RDW 16.5 H (11.5-15.5) % Plt Count 224 (125-369) X10(3)uL MPV 8.5 (7.4-10.4) fL Add Manual Diff Yes Neutrophils % (Manual) 88 H (46-82) % Lymphocytes % (Manual) 5 L (13-37) % Monocytes % (Manual) 5 (4-12) % Eosinophils % (Manual) 2 (0-5) % Poikilocytosis Few Anisocytosis Few Sodium 141 (135-145) mmol/L Potassium 3.8 (3.5-5.3) mmol/L Chloride 105 (100-110) mmol/L Carbon Dioxide 26 (21-32) mmol/L BUN 14 (7-18) mg/dL Creatinine 0.7 (0.70-1.30) mg/dL Est Cr Clr Drug Dosing 89.80 mL/min Estimated GFR (MDRD) > 60 (>60) BUN/Creatinine Ratio 20.0 (9-20) Glucose 108 (80-116) mg/dL Calcium 9.3 (8.6-10.2) mg/dL Meds: Medications Generic Name Dose Route Start Last Admin Trade Name Freq PRN Reason Stop Dose Admin Fentanyl 10 mcg 04/07/19 08:16 04/07/19 09:20 Sublimaze IVPUSH 10 mcg Q30M PRN Administration Pain Sodium Chloride 1,000 mls @ 150 mls/hr 04/07/19 08:30 04/07/19 08:46 Normal Saline IV 150 mls/hr ASDIRECTED FAIZAN Administration Sodium Chloride 10 ml 04/07/19 07:35 04/07/19 07:35 Saline Flush FLUSH 10 ml ASDIRECTED PRN Administration Keep Vein Open Departure - Departure Disposition: DC/Tfer to Acute Hospital 02 Clinical Impression: Fracture of neck of femur, hip, Dementia - Discharge Information Forms: ED Department Discharge - Problem List & Annotations (1) Trochanteric fracture of femur SNOMED Code(s): 307434028 Code(s): S72.109A - UNSP TROCHANTERIC FRACTURE OF UNSP FEMUR, INIT FOR CLOS FX Status: Acute Qualifiers: Encounter type: initial encounter (2) Dementia SNOMED Code(s): 05850471 Code(s): F03.90 - UNSPECIFIED DEMENTIA WITHOUT BEHAVIORAL DISTURBANCE Status: Chronic Qualifiers: Dementia type: Alzheimer's disease (3) Polycythemia SNOMED Code(s): 586216386 Code(s): D75.1 - SECONDARY POLYCYTHEMIA Status: Chronic (4) Hypertension SNOMED Code(s): 92734568 Code(s): I10 - ESSENTIAL (PRIMARY) HYPERTENSION Status: Chronic Qualifiers: Hypertension type: essential hypertension Qualified Code(s): I10 - Essential (primary) hypertension - Problem List Review Problem List Initiated/Reviewed/Updated: Yes - My Orders Last 24 Hours: My Active Orders 04/07/19 08:16 fentaNYL [Sublimaze] 10 mcg IVPUSH Q30M PRN 04/07/19 08:30 Sodium Chloride 0.9% [Normal Saline] 1,000 ml IV ASDIRECTED 04/07/19 12:30 URINALYSIS W/MICROSCOPIC [UA W/MICROSCOPIC] [URIN] Stat - Assessment/Plan Last 24 Hours: My Active Orders 04/07/19 08:16 fentaNYL [Sublimaze] 10 mcg IVPUSH Q30M PRN 04/07/19 08:30 Sodium Chloride 0.9% [Normal Saline] 1,000 ml IV ASDIRECTED 04/07/19 12:30 URINALYSIS W/MICROSCOPIC [UA W/MICROSCOPIC] [URIN] Stat Plan: Obtain CBC,CMP,EKG and Ortho Consult. <Jaquelin Acosta - Last Filed: 04/07/19 13:11> Course - Vital Signs Text/Narrative:: care assumed at 8am from Dr. Delgadillo, labs still pending. EKG reviewed, normal. 20mcg fentanyl given for pain normal saline running at 150ml, slowed to 50ml due to copious urine output lizarraga placed due to unable to void, 1000ml out [facility] not available today, will need transferred. Discussed with daughter, who would like [facility]. Transfer process initiated, Dr. Domingo accepting. transfer delayed due to availability of resources, patient stable. Slight confusion following fentanyl. repeat exam, pupils equal, moving extremities normally, no signs of head trauma visible. At baseline, patient is alert and oriented only to self. Family aware he will need someone to consent for surgery for him. Departure - Departure Time of Disposition: 13:11 Condition: Fair - Discharge Information *PRESCRIPTION DRUG MONITORING PROGRAM REVIEWED*: Not Applicable *COPY OF PRESCRIPTION DRUG MONITORING REPORT IN PATIENT AIDEE: Not Applicable
[2019-04-07] MEDS ORDERED: Sodium Chloride 0.9% 10 ML Syringe FLUSH PRN (07:35)
[2019-04-07] MEDS ORDERED: Sodium Chloride 0.9% 1,000 ML IV SCH (08:30)
[2019-04-07] MEDS: fentaNYL 100 MCG/2 ML SDV IVPUSH PRN ×2 (08:49→09:20)
--- NOTE | 2019-04-07 11:50 | CR ---
INDICATION: Fall, pain. PELVIS: A single frontal view of the pelvis was obtained 04/07/19 and revealed an intertrochanteric fracture on the right, which appears to be in satisfactory position and alignment. Clips are noted overlying the pelvis. A mass in the pelvis most likely represents distended urinary bladder. Somewhat demineralized appearance raises question of osteomalacia or osteoporosis - correlate clinically. Degenerative changes are noted at the hip joints with hypertrophic changes more prominent on the left and craniolateral joint space narrowing of mild to moderate degree bilaterally. IMPRESSION: Intertrochanteric fracture on the right. MTDD
--- NOTE | 2019-04-07 11:53 | CR ---
INDICATION: Fall, pain to inner thigh. RIGHT FEMUR: Four views of the right femur were obtained and revealed a spiral fracture extending through the intertrochanteric area with satisfactory position and alignment of the fracture fragments. Hypertrophic degenerative changes are noted at the hip joint with joint space narrowing craniolaterally of mild to moderate degree. Degenerative changes are noted at the knee joint additionally. The remainder of the femur showed no evidence of acute posttraumatic change. Calcifications are noted in the femoral arteries. IMPRESSION: 1. Intertrochanteric fracture right femur, which appears to be in good position and alignment. 2. 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 3. ASD. MTDD
--- NOTE | 2019-04-07 12:43 | CR ---
INDICATION: Fall. CHEST: A single supine view of the chest was obtained 04/07/19 and compared with 01/10/19, again revealing the heart to be enlarged. The aorta is tortuous with minimal calcification in the arch. Overlying EKG leads are noted. A definite active infiltrate or effusion was not identified. IMPRESSION: No definite acute process. MTDD
[2019-04-07] MEDS ORDERED: Ketorolac 30 MG/ML SDV IVPUSH ONE (13:05)
== END 2019-04-07 13:50 ==
LOC: FB.ED 05:41
DX: S72.141A Displaced intertrochanteric fracture of right femur, initial encounter for closed fracture (principal); I10 Essential (primary) hypertension; Z88.8 Allergy status to other drugs, medicaments and biological substances; Z79.82 Long term (current) use of aspirin; Z79.899 Other long term (current) drug therapy; W18.39XA Other fall on same level, initial encounter
CPT/HCPCS: 36415; 51702; 71045; 72170; 73552; 80048; 81001; 85025; 93005; 96361; 96374; 96375; 96376; 99284; J1885; J3010; J7030